=== PATIENT | female | born 1960 | race Caucasian/White ===

== ENCOUNTER 2020-09-19 08:25 | Outpatient (CLI) | payer OTHER, SELFPAY ==
--- NOTE | ~2020-09-19 | MM_ITS ---
EXAMINATION: MM screening erich BI w john HISTORY: Screening TECHNIQUE: Craniocaudal and mediolateral oblique 3-D tomosynthesis images were obtained and synthetic 2-D images were generated. CAD analysis was submitted and interpreted. COMPARISON: No prior mammogram is available for comparison at this institution. BREAST PARENCHYMAL COMPOSITION: Breast composed of scattered areas of fibroglandular density. FINDINGS: There is no evidence of suspicious mass, calcification, or architectural distortion to sugg est malignancy in either breast. There has been no suspicious interval change. IMPRESSION: 1. No mammographic evidence of malignancy. 2. Recommend routine screening mammography in one year. BI-RADS Category 1: Negative Reviewed, dictated and finalized at location A. IC ADDRESS ANNOUNCER
== END 2020-09-19 08:26 | disposition home or self-care (01) ==
LOC: ANHIMG 08:27
PROVIDERS: PCP Nurse Practitioner Adult Health; Visit Provider Nurse Practitioner Adult Health
DX: Z12.31 Encounter for screening mammogram for malignant neoplasm of breast (principal)
CPT/HCPCS: 77063; 77067

== ENCOUNTER 2020-09-20 10:34 | Emergency (ER) | payer OTHER, SELFPAY ==
--- NOTE | ~2020-09-20 | XR_ITS ---
EXAMINATION: XR hand LT min 3V INDICATION: Left hand pain TECHNIQUE: Three views of the left hand are obtained. COMPARISON: 05/30/2009 FINDINGS: There is advanced osteoarthritis at the first carpometacarpal joint and fifth distal interp halangeal joint. There is a possible prior fracture second distal interphalangeal joint. No acute fra cture is identified. The soft tissues are unremarkable IMPRESSION: 1. Osteoarthritis without acute osseous abnormality identified. Reviewed, dictated and finalized at location A. SOFTWARE ENGINEERING
--- NOTE | ~2020-09-20 | XR_ITS ---
EXAMINATION: XR chest 1V portable INDICATION: Chest pain TECHNIQUE: Portable AP chest at 1126 hours COMPARISON: 10/04/2017 FINDINGS: The lungs are free of acute opacities. There is no pleural effusion or pneumothorax. The ca rdiomediastinal silhouette is normal. The visualized bones and soft tissues are unremarkable. IMPRESSION: 1. No acute cardiopulmonary abnormality. Reviewed, dictated and finalized at location A. [employer]IA JOB TITLES
--- NOTE | ~2020-09-20 | XR_ITS ---
EXAMINATION: XR forearm LT 2V INDICATION: Left forearm pain TECHNIQUE: Two views of the left forearm are obtained. COMPARISON: None available FINDINGS: There is no fracture, dislocation, or subluxation. Alignment at the wrist and elbow is norm al. There is advanced osteoarthritis at the first carpometacarpal joint. IMPRESSION: 1. No acute osseous abnormality. Reviewed, dictated and finalized at location A. DENT BUYER
[2020-09-20 10:51] VITALS: BP 168/100; PULSE 86; RESP 18; TEMP 36.4; O2SAT 99
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
== END 2020-09-20 11:35 | disposition home or self-care (01) ==
PROVIDERS: Emergency Provider Emergency Medicine; PCP Nurse Practitioner Adult Health
DX: S20.211A Contusion of right front wall of thorax, initial encounter (principal); S50.12XA Contusion of left forearm, initial encounter; S60.222A Contusion of left hand, initial encounter; V49.40XA Driver injured in collision with unspecified motor vehicles in traffic accident, initial encounter
CPT/HCPCS: 71045; 73090; 73130; 99284

== ENCOUNTER 2020-10-26 13:38 | Outpatient (CLI) | payer OTHER, SELFPAY ==
--- NOTE | 2020-10-26 | ECHO_ITS ---
Patient Info Name: Zaida Webber Age: 60 years : 1960 Gender: Female Ht: 60 in Wt: 138 lbs BSA: 1.65 m2 HR: 70 bpm BP: 171 / 98 mmHg Heart Rhythm: Sinus Rhythm Technical Quality: Good Exam Date: 10/26/2020 1:58 PM Exam Location: [facility] Patient Status: Outpatient Admit Date: 10/26/2020 Staff Ordering Physician: RafitaMonica NP Adjunct Psychology Instructor: Juan Taylor RDCS Attending Provider: Juan DanielMonica NP Exam Type: CA echo doppler color flow Study Info Indications R01.1 - Cardiac murmur, unspecified Complete two-dimensional, color flow and Doppler transthoracic echocardiogram is performed. Strain analysis performed. History/Risk Factors Murmur; past hx of pericarditis. Summary 1. Complete two-dimensional, color flow and Doppler transthoracic echocardiogram is performed. 2. Left ventricular chamber dimension is normal. 3. Left ventricular systolic function is hyperdynamic, estimated at >70%. 4. There is severe asymmetric septal increased left ventricular wall thickness. 5. Left ventricular septal wall motion is normal. 6. The left ventricular diastolic function is grade I diastolic dysfunction. 7. Global longitudinal strain is borderline at -17 %. 8. LVOT gradient with Valsalva 36 mmHg with a velocity of 3.0 m/sec. 9. Left atrial chamber dimension is mildly enlarged. 10. There is mild tricuspid valve regurgitation. 11. Mild pulmonary hypertension, estimated pulmonary arterial systolic pressure is 37 mmHg. 12. The mitral valve annulus is moderately calcified. 13. There is mild mitral valve regurgitation. 14. Strain analysis performed. Left Ventricle Left ventricular chamber dimension is normal. Left ventricular systolic function is hyperdynamic, estimated at >70%. There is severe asymmetric septal increased left ventricular wall thickness. Left ventricular septal wall motion is normal. The left ventricular diastolic function is grade I diastolic dysfunction. Global longitudinal strain is borderline at -17 %. LVOT gradient with Valsalva 36 mmHg with a velocity of 3.0 m/sec. Right Ventricle Right ventricular chamber dimension is normal. Right ventricular systolic function is normal. Left Atria Left atrial chamber dimension is mildly enlarged. Right Atria Right atrial chamber dimension is normal. Atrial Septum Intact interatrial septum visualized by color flow imaging. Aortic Valve The aortic valve is trileaflet. There is mild aortic valve sclerosis. There is no aortic valve stenosis. There is trace aortic valve regurgitation. Pulmonic Valve The pulmonic valve is normal. There is no pulmonic valve stenosis. There is trace pulmonic regurgitation. Mitral Valve There is no mitral valve stenosis. There is mild mitral valve regurgitation. The mitral valve annulus is moderately calcified. Tricuspid Valve The tricuspid valve leaflets are normal. There is no significant tricuspid valve stenosis. There is mild tricuspid valve regurgitation. Mild pulmonary hypertension, estimated pulmonary arterial systolic pressure is 37 mmHg. Pericardium/Pleural The pericardium appears epicardial fat pad. There is no pericardial effusion. Inferior Vena Cava Normal inferior vena cava with <50% collapse upon inspiration consistent with elevated right atrial pressure, 10 mmHg. Aorta The aortic root size at the sinus of Valsalva is normal. The prox ascending aorta size is normal. Left Vent
== END 2020-10-26 13:39 | disposition home or self-care (01) ==
PROVIDERS: PCP Nurse Practitioner Adult Health; Visit Provider Nurse Practitioner Adult Health
DX: R01.1 Cardiac murmur, unspecified (principal); I27.20 Pulmonary hypertension, unspecified; I08.1 Rheumatic disorders of both mitral and tricuspid valves
CPT/HCPCS: 93306

== ENCOUNTER 2020-12-08 08:50 | Outpatient (CLI) | payer OTHER, SELFPAY ==
--- NOTE | ~2020-12-08 | XR_ITS ---
EXAMINATION: XR lumbar spine 2-3V DATE: 12/08/2020 09:08 INDICATION: Lumbosacral spondylosis TECHNIQUE: Anteroposterior and lateral views of the lumbar spine, and cone-down lateral view of the l umbosacral junction were obtained. COMPARISON: Lumbar spine MR dated 04/27/2018 FINDINGS: 5 degrees lumbar levocurvature. 3 mm anterolisthesis L3 on L4. Vertebral body heights are normal. Sev ere disc height loss with sclerotic Modic type III changes anteriorly at T12-L1. Moderate disc height loss at T11-T12. Mild disc height loss at L2-L3 and L3-L4. Mild to moderate, lower lumbar predominan t facet osteoarthritis. Sacrum and bilateral sacroiliac joints are normal. IMPRESSION: 1. Severe degenerative disc disease at T12-L1. Mild to moderate lumbar spondylosis. Reviewed, dictated and finalized at location A. IMPRESSION: 1. Severe degenerative disc disease at T12-L1. Mild to moderate lumbar spondylo sis.
--- NOTE | ~2020-12-08 | XR_ITS ---
EXAMINATION:XR_CERV2-3V_CR DATE: 12/08/2020 09:08 INDICATION: Cervicalgia TECHNIQUE: AP, lateral and odontoid views of the cervical spine are provided. COMPARISON: None FINDINGS: 1-2 mm anterolisthesis C7 on T1. Straightening of the normal cervical lordosis. Odontoid is intact. Normal atlantoaxial interval. Vertebral body heights are normal. Moderate disc height loss with mild degenerative endplate changes and moderate bilateral uncovertebral osteoarthritis at C5-C6 and C6-C7. Mild disc height loss at C4-C5. Moderate to severe facet osteoarthritis in the mid cervical spine, l eft greater than right. Prevertebral soft tissues are normal. Airway and visualized apices of lungs a re clear. IMPRESSION: 1. Moderate cervical spondylosis. Reviewed, dictated and finalized at location A.
[2020-12-08 10:09] LABS: Alanine Aminotransferase 22 U/L (4-35); Albumin Level 4.5 g/dL (3.5-5.1); Alkaline Phosphatase 68 U/L (38-126); Anion Gap 5 mmol/L (8-16); Aspartate Amino Transferase 27 U/L (14-36); Bilirubin,Total 0.5 mg/dL (0.2-1.3); Blood Urea Nitrogen 17 mg/dL (7-17); Calcium 9.1 mg/dL (8.4-10.2); Carbon Dioxide 31 mmol/L (22-30); Chloride 105 mmol/L (98-107); Estimated Glomerular Filt Rate > 60; Glucose 111 mg/dL (65-105); Potassium 4.3 mmol/L (3.4-5.0); Sodium 141 mmol/L (137-145)
== END 2020-12-08 08:51 | disposition home or self-care (01) ==
LOC: ANHIMG 08:56
PROVIDERS: PCP Nurse Practitioner Adult Health
DX: M54.2 Cervicalgia (principal); M47.817 Spondylosis without myelopathy or radiculopathy, lumbosacral region; M54.16 Radiculopathy, lumbar region; M54.5 Low back pain; R22.2 Localized swelling, mass and lump, trunk; M51.34 Other intervertebral disc degeneration, thoracic region; M47.816 Spondylosis without myelopathy or radiculopathy, lumbar region; M47.812 Spondylosis without myelopathy or radiculopathy, cervical region
CPT/HCPCS: 36415; 72040; 72100; 80053

== ENCOUNTER 2021-01-07 09:17 | Outpatient (CLI) | payer OTHER, SELFPAY ==
[2021-01-07 09:42] LABS: Hematocrit 45.3 % (37.0-47.0); Hemoglobin 15.1 g/dL (12.0-15.0); Mean Corpuscular HGB Conc 33.3 g/dl (32-36); Mean Corpuscular Hemoglobin 30.5 pg (26-34); Mean Corpuscular Volume 91.5 fl (80-100); Mean Platelet Volume 9.8 fl (7.4-10.4); Platelet Count Result 253 k/mm3 (150-375); Red Blood Count 4.95 M/mm3 (4.2-5.4); Red Cell Distribution Width 12.1 % (11.5-14.5); White Blood Count 6.7 K/mm3 (4.5-10.0)
[2021-01-07 09:45] LABS: Alanine Aminotransferase 28 U/L (4-35); Albumin Level 4.6 g/dL (3.5-5.1); Alkaline Phosphatase 64 U/L (38-126); Anion Gap 6 mmol/L (8-16); Aspartate Amino Transferase 29 U/L (14-36); Bilirubin,Total 0.8 mg/dL (0.2-1.3); Blood Urea Nitrogen 17 mg/dL (7-17); Calcium 9.6 mg/dL (8.4-10.2); Carbon Dioxide 31 mmol/L (22-30); Chloride 105 mmol/L (98-107); Cholesterol 149 mg/dL (0-200); Estimated Glomerular Filt Rate > 60; Glucose 103 mg/dL (65-105); HDL Direct 46 mg/dL; Potassium 4.2 mmol/L (3.4-5.0); Sodium 142 mmol/L (137-145); Triglycerides 112 mg/dL (<150)
[2021-01-07 09:56] LABS: LDL Cholesterol Direct 83 mg/dL
[2021-01-07 10:36] LABS: Vitamin B12 > 1000.0 pg/mL (239-931)
[2021-01-07 11:02] LABS: Iron 137 ug/dL (37-170)
[2021-01-07 11:11] LABS: Percent Iron Saturation 49 % (20-50)
[2021-01-07 11:17] LABS: Vitamin D 25 Hydroxy 41.6 ng/mL
== END 2021-01-07 09:18 | disposition home or self-care (01) ==
LOC: ANHLAB 09:20
PROVIDERS: PCP Nurse Practitioner Adult Health; Visit Provider Nurse Practitioner Adult Health
DX: E55.9 Vitamin D deficiency, unspecified (principal); E03.9 Hypothyroidism, unspecified; I10 Essential (primary) hypertension; E78.5 Hyperlipidemia, unspecified; R53.81 Other malaise
CPT/HCPCS: 36415; 80048; 80061; 80076; 82306; 82607; 82728; 83540; 83550; 84443; 85027

== ENCOUNTER 2021-03-26 19:35 | Emergency (ER) | payer OTHER, SELFPAY ==
[2021-03-26 19:40] VITALS: BP 127/73; PULSE 80; RESP 20; TEMP 36.3; O2SAT 96
[2021-03-26] MEDS: TETANUS,DIPHTHERIA,AC PERTUSSIS ADULT (0.5 ML) BOOSTRIX IM (19:58)
--- NOTE | 2021-03-26 20:24 | ED.GENADULT ---
HPI - General Adult General Chief complaint: Wound/Laceration Stated complaint: cut my fingers Time Seen by Provider: 03/26/21 19:48 Source: patient, family and RN notes reviewed Mode of arrival: ambulatory Limitations: no limitations History of Present Illness HPI narrative: Patient is a 60-year-old female who presents to emergency department for evaluation of laceration of the distal tip of the right middle finger patient had a piece of porcelain break in the sink cut herself patient is unsure as to her tetanus status on arrival patient presents in no distress resting comfortably Related Data Home Medications Medication Instructions Recorded Confirmed atorvastatin 20 mg tablet 20 mg PO DAILY tablet 02/29/20 levothyroxine 25 mcg tablet 25 mcg PO DAILY tablet 02/29/20 montelukast 10 mg tablet 10 mg PO DAILY tablet 02/29/20 Allergies Allergy/AdvReac Type Severity Reaction Status Date / Time No Known Allergies Allergy Verified 03/26/21 19:43 Review of Systems Review of Systems: All systems reviewed & are unremarkable except as noted in HPI and below PMFSH Past Medical History Medical History Low thyroid stimulating hormone (TSH) level Surgical History Surgical History H/O: hysterectomy 1979 History of foot surgery 2003 Social History Social History Gender identity (if verbalized by the patient): Female Exam Narrative: Exam Narrative: GENERAL: Well-appearing, well-nourished, and in no acute distress. HEAD: Normocephalic, atraumatic. EYES: PERRLA and EOMI. ENT: Nares clear, no rhinorrhea or epistaxis. Mucous membranes moist. EXTREMITIES: Normal range of motion. No edema. Superficial half centimeter flap laceration distal right middle digit SKIN: Warm, dry, no rash. NEURO: No focal deficits. Alert and oriented x3. Neurovascularly intact PSYCH: Normal mood and affect. Course Course Emergency Course: Patient had evaluation emergency department given tetanus and wound closed provided with reasons to return felt appropriate for outpatient reevaluation Vital Signs Vital signs: Vital Signs Temperature 97.3 F L 03/26/21 19:40 Pulse Rate 80 03/26/21 19:40 Respiratory Rate 20 03/26/21 19:40 Blood Pressure 127/73 03/26/21 19:40 Pulse Oximetry 96 03/26/21 19:40 Temperature 97.3 F L 03/26/21 19:40 Pulse Rate 80 03/26/21 19:40 Respiratory Rate 20 03/26/21 19:40 Blood Pressure 127/73 03/26/21 19:40 Pulse Oximetry 96 03/26/21 19:40 Procedures Laceration Laceration 1: Date: 03/26/21 Site: hand Side (If applicable): right Size (cm): 0.5 Description: flap Depth: simple, single layer Pre-repair: wound explored ====== Skin Level ====== Skin layer closed with: dermabond ====== Subcutaneous Layer ====== ====== Muscle Layer ====== ====== Tendon Layer ====== Medical Decision Making MDM Narrative Medical decision making narrative: Patients injury or pain is consistent with musculoskeletal etiology. No signs of neurological or vascular compromise on exam. Compartments and tisues are soft without signs of compartment syndrome. Pain is felt appropriate for further evaluation on an outpatient basis. Vital Signs Vital Signs: Vital Signs Temperature 97.3 F L 03/26/21 19:40 Pulse Rate 80 03/26/21 19:40 Respiratory Rate 20 03/26/21 19:40 Blood Pressure 127/73 03/26/21 19:40 Pulse Oximetry 96 03/26/21 19:40 Temperature 97.3 F L 03/26/21 19:40 Pulse Rate 80 03/26/21 19:40 Respiratory Rate 20 03/26/21 19:40 Blood Pressure 127/73 03/26/21 19:40 Pulse Oximetry 96 03/26/21 19:40 Discharge Plan Discharge Clinical Impression: Finger laceration Patient Disposition: Home, Self-Care Condit
== END 2021-03-26 20:39 | disposition home or self-care (01) ==
PROVIDERS: Emergency Provider Emergency Medicine; PCP Nurse Practitioner Adult Health
DX: S61.212A Laceration without foreign body of right middle finger without damage to nail, initial encounter (principal); Z23 Encounter for immunization; W26.8XXA Contact with other sharp object(s), not elsewhere classified, initial encounter
CPT/HCPCS: 12001; 90471; 90715; 99282

== ENCOUNTER 2021-05-06 08:59 | Outpatient (CLI) | payer OTHER, SELFPAY ==
--- NOTE | ~2021-05-06 | MR_ITS ---
EXAMINATION: MR lumbar spine wo con EXAM DATE: 05/06/2021 10:24 INDICATION: Chronic low back pain. TECHNIQUE: Multi-sequential, multiplanar MR images of the lumbar spine were obtained without contrast . Sagittal T1, T2, T2 fat saturation images. Axial T2 weighted images. Comparison is made to prior examination from 2018. FINDINGS: There is moderate loss of the disc height at T12-L1, mild to moderate at L3-4 with 3 mm ant erolisthesis. The vertebral bodies are otherwise aligned. The conus medullaris terminates at the T12- L1 level and has normal signal intensity and morphology. There are no suspicious marrow signal abnor malities. Paraspinal soft tissue is unremarkable. Level by level evaluation: T12-L1: There is a mild to moderate diffuse disc bulge. Facet arthropathy: Mild. Neural foraminal stenosis: No stenosis. Central canal stenosis: Mild. L1-L2: Disc does not extend beyond the endplate margin. Facet arthropathy: Mild. Neural foraminal stenosis: No stenosis. Central canal stenosis: No stenosis. L2-L3: There is a mild diffuse disc bulge. Facet arthropathy: Mild to moderate. Neural foraminal stenosis: Mild bilateral. Central canal stenosis: Mild. L3-L4: There is a moderate diffuse disc bulge. Facet arthropathy: Moderate to severe . Ligamentum flavum enlargement. Neural foraminal stenosis: Mild to moderate bilateral. Central canal stenosis: Mild to moderate. L4-L5: There is a mild to moderate diffuse disc bulge. Facet arthropathy: Moderate. Neural foraminal stenosis: Mild left. Central canal stenosis: Mild to moderate. L5-S1: There is a mild diffuse disc bulge. Facet arthropathy: Moderate left, mild right. Neural foraminal stenosis: Minimal left. Central canal stenosis: Mild. Compared to 2018, mild progression spondylosis. IMPRESSION: L3-4 grade 1 anterolisthesis, advanced arthropathy. Less spondylosis other levels. Reviewed, dictated and finalized at location B. IMPRESSION: L3-4 grade 1 anterolisthesis, advanced arthropathy. Less spondylosi s other levels.
== END 2021-05-06 09:00 | disposition home or self-care (01) ==
LOC: ANHIMG 09:00
PROVIDERS: PCP Nurse Practitioner Adult Health; Visit Provider Pain Medicine Pain Medicine
DX: M47.817 Spondylosis without myelopathy or radiculopathy, lumbosacral region (principal); M51.36 Other intervertebral disc degeneration, lumbar region; M43.16 Spondylolisthesis, lumbar region; M47.816 Spondylosis without myelopathy or radiculopathy, lumbar region
CPT/HCPCS: 72148

== ENCOUNTER → 2021-05-12 04:08 | Outpatient (CLI) | payer OTHER, SELFPAY ==
[2021-05-12 18:14] LABS: SARS-CoV-2 RNA PCR Negative
== END ==
PROVIDERS: PCP Nurse Practitioner Adult Health; Visit Provider Nurse Practitioner Adult Health
DX: Z20.822 Contact with and (suspected) exposure to COVID-19 (principal); R09.81 Nasal congestion
CPT/HCPCS: C9803; U0003; U0005

== ENCOUNTER 2021-10-30 07:41 | Outpatient (CLI) | payer OTHER, SELFPAY ==
--- NOTE | ~2021-10-30 | MM_ITS ---
EXAMINATION: MM screening erich BI w john HISTORY: Screening mammogram TECHNIQUE: Craniocaudal and mediolateral oblique 3-D tomosynthesis images were obtained and synthetic 2-D images were generated. CAD analysis was submitted and interpreted. COMPARISON: 09/19/2020,, bilateral screening mammogram examinations BREAST PARENCHYMAL COMPOSITION: There are scattered areas of fibroglandular density. FINDINGS: There is no evidence of suspicious mass, calcification, or architectural distortion to sugg est malignancy in either breast. There has been no suspicious interval change. IMPRESSION: 1. No mammographic evidence of malignancy. 2. Recommend routine screening mammography in one year. BI-RADS Category 1: Negative Reviewed, dictated and finalized at location A. SING GUARD
== END 2021-10-30 07:42 | disposition home or self-care (01) ==
LOC: ANHIMG 07:42
PROVIDERS: PCP Nurse Practitioner Adult Health; Visit Provider Nurse Practitioner Adult Health
DX: Z12.31 Encounter for screening mammogram for malignant neoplasm of breast (principal)
CPT/HCPCS: 77063; 77067

== ENCOUNTER 2022-02-28 15:00 | Outpatient (RCR) | payer OTHER, SELFPAY ==
--- NOTE | 2022-01-30 08:43 | PTOPEVAL ---
PHYSICAL THERAPY EVALUATION AND PLAN OF CARE Thank you for referring Zaida Webber to [facility].? The patient is scheduled to be seen for therapy? 1x/week for 5 weeks. Please review, sign, date and return this plan of care TOSHA. I agree with and certify that the following plan of care is medically necessary. Referring Physician Date Attending Provider: Andrés Roberson Diagnosis erosive osteoarthritis Onset chronic Subjective Information Zaida is here today with a Query Text:As Reported By Patient/ diagnosis of erosive OA. She Family reports that she has pain in her hands, feet, low back, upper back, and neck. She reports that she has a difficult time opening bag of chips or jars. She gets generally achey in her low back and it will spread down to her hips. Self Report Pain Assessment Generalized Reported Pain Level 5 Cervical ROM Cervical Flexion (0-60) 45 Query Text:Active in Degrees Cervical Flexion (0-70) 30 Query Text:Passive in Degrees Cervical Rotation Right (0-90) 56 Query Text:Active in Degrees Cervical Rotation Left (0-90) 55 Query Text:Active in Degrees Lumbar ROM Lumbar Flexion Active Ankle Query Text:Hands to: Lumbar Lateral Flexion Right (0-40) 15 Query Text:Active in Degrees Lumbar Comments left rotation<right rotation Upper Extremity Range of Motion General Upper Extremity Range of Motion Gross Upper Extremity Range of Motion generally WFL with left Comments shoulder tenderness; endranges limited secondary to decreased thoracic mobility Lower Extremity Range of Motion General Lower Extremity Range of Motion Reason Not Measured WFL/Left,WFL/Right Lower Extremity Muscle Strength Testing Hip Strength Bilateral Hip Flexion Strength 5 Normal Hip Extension Strength 4- Good - Hip Abduction Strength 4- Good - Knee Strength Bilateral Knee Flexion Strength 5 Normal Knee Extension Strength 5 Normal Upper Extremity Muscle Strength Testing Scapular/Shoulder Bilateral Scapular Retraction - Middle Trapezius 3- Fair - Scapular Retraction - Lower Trapezius 3- Fair - Shoulder Flexion Strength 4- Good - Shoulder Abduction Strength 4- Good - Shoulder Medial Rotation Strength 4- Good - Shoulder Lateral Rotation Strength 3+ Fair + Shoulder Strength Comments right 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
--- NOTE | 2022-02-13 14:23 | PCPTNOTE ---
Patient called & cancelled scheduled appointment this date, no reason given.
--- NOTE | 2022-03-13 07:28 | PCPTNOTE ---
Patient called & cancelled scheduled appointment this date due to not feeling well.
--- NOTE | 2022-03-13 09:01 | PCPTNOTE ---
PHYSICAL THERAPY DISCHARGE NOTE Attending Provider: Andrés Roberson Patient:Zaida Webber Date of :1960 Zaida has been participating in physical therapy to address pain related to OA. She is now independent in HEP and states good understanding of her instructions and education. Zaida cancelled her last visit due to not feeling well but spoke with her on the phone and she states she is comfortable with HEP and is ready for discharge. Patient?s initial visit was on 01/30/2022 and had a total of 4 visits. Thank you for referring this patient to [facility]. Please review, sign, date and return this discharge summary TOSHA. I have been updated about the patient's current status and I agree with discharge from the above service at this time. Referring Physician Date
== END 2022-03-13 13:48 | disposition home or self-care (01) ==
LOC: ANHPT 15:00
PROVIDERS: PCP Nurse Practitioner Adult Health
DX: M15.4 Erosive (osteo)arthritis (principal)
CPT/HCPCS: 97110; 97112; 97140; 97162

== ENCOUNTER 2022-07-13 09:15 | Outpatient (CLI) | payer OTHER, SELFPAY ==
[2022-07-13 10:01] LABS: Hematocrit 41.7 % (37.0-47.0); Hemoglobin 13.7 g/dL (12.0-15.0); Mean Corpuscular HGB Conc 32.9 g/dl (32-36); Mean Corpuscular Hemoglobin 30.2 pg (26-34); Mean Corpuscular Volume 91.9 fl (80-100); Platelet Count Result 240 k/mm3 (150-375); Red Blood Count 4.54 M/mm3 (4.2-5.4); Red Cell Distribution Width 12.8 % (11.5-14.5); White Blood Count 6.7 K/mm3 (4.5-10.0)
[2022-07-13 10:19] LABS: Iron 87 ug/dL (37-170)
[2022-07-13 10:29] LABS: Percent Iron Saturation 31 % (20-50)
[2022-07-13 10:34] LABS: Alanine Aminotransferase 32 U/L (6-35); Albumin Level 4.2 g/dL (3.5-5.1); Alkaline Phosphatase 70 U/L (38-126); Anion Gap 10 mmol/L (8-16); Aspartate Amino Transferase 29 U/L (14-36); Bilirubin,Total 0.7 mg/dL (0.2-1.3); Blood Urea Nitrogen 18 mg/dL (7-17); Calcium 8.4 mg/dL (8.4-10.2); Carbon Dioxide 28 mmol/L (22-30); Chloride 104 mmol/L (98-107); Cholesterol 163 mg/dL (0-200); Estimated Glomerular Filt Rate > 60; Glucose 110 mg/dL (65-110); HDL Direct 47 mg/dL; Potassium 4.2 mmol/L (3.4-5.0); Sodium 142 mmol/L (137-145); Triglycerides 53 mg/dL (<150)
[2022-07-13 10:45] LABS: LDL Cholesterol Direct 87 mg/dL
[2022-07-13 11:04] LABS: Thyroid Stimulating Hormone 0.892 uIU/mL (0.465-4.680)
== END 2022-07-13 09:16 | disposition home or self-care (01) ==
LOC: ANHLAB 09:19
PROVIDERS: PCP Nurse Practitioner Adult Health; Visit Provider Nurse Practitioner Adult Health
DX: E03.9 Hypothyroidism, unspecified (principal); E55.9 Vitamin D deficiency, unspecified; I10 Essential (primary) hypertension; E78.5 Hyperlipidemia, unspecified; R53.81 Other malaise
CPT/HCPCS: 36415; 80048; 80061; 80076; 82306; 82607; 83540; 83550; 84443; 85027

== ENCOUNTER 2022-08-10 10:14 | Outpatient (CLI) | payer OTHER, SELFPAY ==
--- NOTE | ~2022-08-10 | XR_ITS ---
EXAMINATION: XR shoulder LT min 2V INDICATION: Left shoulder pain TECHNIQUE: Four views of the left shoulder are submitted. COMPARISON: None FINDINGS: Normal alignment. No fracture. Glenohumeral and acromioclavicular joint spaces are normal. Soft tissues are unremarkable. IMPRESSION: 1. No acute osseous abnormality. Reviewed, dictated and finalized at location A. ENT SERVICES COORDINATOR
--- NOTE | ~2022-08-10 | XR_ITS ---
EXAMINATION: XR shoulder RT min 2V INDICATION: Right shoulder pain TECHNIQUE: Four views of the right shoulder are submitted. COMPARISON: None FINDINGS: Normal alignment. No fracture. Glenohumeral and acromioclavicular joint spaces are normal. Soft tissues are unremarkable. IMPRESSION: 1. No acute osseous abnormality. Reviewed, dictated and finalized at location A. LIANCE PROJECT MANAGER
== END 2022-08-10 10:15 | disposition home or self-care (01) ==
PROVIDERS: PCP Nurse Practitioner Adult Health
DX: M25.511 Pain in right shoulder (principal)
CPT/HCPCS: 73030

== ENCOUNTER 2022-10-31 10:11 | Outpatient (CLI) | payer OTHER, SELFPAY ==
--- NOTE | ~2022-10-31 | XR_ITS ---
AP and lateral views of the bilateral hips Clinical history: Pain Findings: No acute fracture or dislocation is seen. Osseous alignment is anatomic. Bilateral hip and SI joint spaces are preserved. Soft tissues are unremarkable. Impression: No significant abnormality is seen. Reviewed, dictated and finalized at location . CRAFTSMAN Impression: No significant abnormality is seen.
== END 2022-10-31 10:12 | disposition home or self-care (01) ==
PROVIDERS: PCP Family Medicine; Visit Provider Pain Medicine Pain Medicine
DX: M25.551 Pain in right hip (principal); M25.552 Pain in left hip
CPT/HCPCS: 73521

== ENCOUNTER 2023-01-24 07:59 | Outpatient (CLI) | payer OTHER, SELFPAY ==
--- NOTE | ~2023-01-24 | MM_ITS ---
EXAMINATION: MM screening [facility] BI w john HISTORY: Screening mammogram TECHNIQUE: Craniocaudal and mediolateral oblique 3-D tomosynthesis images were obtained and synthetic 2-D images were generated. CAD analysis was submitted and interpreted. COMPARISON: 10/30/2021, 09/19/2020, 12/31/2018 BREAST PARENCHYMAL COMPOSITION: There are scattered areas of fibroglandular density. FINDINGS: No suspicious mass, calcification, or architectural distortion are identified in either alyssa ast to suggest malignancy. There has been no suspicious interval change. IMPRESSION: 1. No mammographic evidence of malignancy. 2. Recommend routine screening mammography in one year. BI-RADS Category 1: Negative Reviewed, dictated and finalized at location A.
== END 2023-01-24 08:00 | disposition home or self-care (01) ==
PROVIDERS: PCP Family Medicine; Visit Provider Family Medicine
DX: Z12.31 Encounter for screening mammogram for malignant neoplasm of breast (principal)
CPT/HCPCS: 77063; 77067

== ENCOUNTER 2023-10-30 16:22 | Emergency (ER) | payer OTHER, SELFPAY ==
--- NOTE | ~2023-10-30 | XR_ITS ---
EXAMINATION: XR chest 1V portable 10/30/2023 17:00 INDICATION: Chest pain PROCEDURE: AP portable chest COMPARISON: 09/02/2015 FINDINGS: The lungs are clear. The cardiomediastinal silhouette is within normal limits. There are no pleural effusions. There is no pneumothorax suspected. IMPRESSION: 1: NO ACUTE CARDIOPULMONARY DISEASE. Reviewed, dictated and finalized at location A. [facility]
--- NOTE | ~2023-10-30 | CT_ITS ---
EXAMINATION: CTA chest PE protocol DATE: 10/30/2023 19:14 INDICATION: Back pain. Right scapular pain. TECHNIQUE: Computed tomography angiography (CTA) of the chest was performed with 100 mL Omnipaque-350 intravenous contrast timed to evaluate the pulmonary arteries. Coronal maximum intensity projection 3D-reconstructions were created by the technologist. Automated exposure control and iterative reconst ruction technique were employed. The dose-length product was 244.87 mGy-cm. COMPARISON: CT abdomen and pelvis 07/14/2015 FINDINGS: The lungs demonstrate mild atelectasis. No pleural effusion. The heart size is normal. No p ericardial effusion. There is no pulmonary embolus. There is severe cervical and thoracic spondylosis . There is mild chronic anterior wedging of multiple thoracic vertebral bodies. IMPRESSION: 1. No pulmonary embolus. Reviewed, dictated and finalized at location E. [facility] IMPRESSION: 1. No pulmonary embolus.
[2023-10-30 16:24] VITALS: BP 164/93; PULSE 78; RESP 20; TEMP 36.7; O2SAT 99
--- NOTE | 2023-10-30 16:35 | ED.BACK ---
HPI - Back Pain/Injury General Chief Complaint: Back Pain/Injury Stated Complaint: R SCAPULA PAIN X5D Time Seen by Provider: 10/30/23 16:35 Source: patient and family Mode of arrival: ambulatory Limitations: no limitations History of Present Illness HPI Narrative: 63 years old white female came to the ED by car with her complaining of right upper back pain, started 1 day after lifting heavy box above the level of her head. Symptoms started 5 days ago. Patient seen in urgent care and started on muscle relaxant and ibuprofen, no improvement. She denies any fever, chills, nausea, vomiting, chest pain or shortness of breath, pain get worse with breathing and certain movement. Related Data Home Medications Medication Instructions Recorded Confirmed atorvastatin 20 mg tablet 20 mg PO DAILY 02/29/20 levothyroxine 25 mcg tablet 25 mcg PO DAILY 02/29/20 montelukast 10 mg tablet 10 mg PO DAILY 02/29/20 Allergies Allergy/AdvReac Type Severity Reaction Status Date / Time No Known Allergies Allergy Verified 10/30/23 16:54 Review of Systems Review of Systems: All systems reviewed & are unremarkable except as noted in HPI and below PMFSH Past Medical History Medical History Low thyroid stimulating hormone (TSH) level Surgical History Surgical History H/O: hysterectomy 1979 History of foot surgery 2003 Social History Social History Smoking status: Never smoker Gender identity (if verbalized by the patient): Female Exam Narrative: General appearance: Well-developed, well-nourished Skin: Normal color Head: Normocephalic, nontraumatic Eyes: Clear conjunctiva ENT: Oropharynx normal, ears normal, nose normal Neck: Supple, nontender Chest and respiratory: Airway patent, no respiratory distress, no accessory muscle use Heart: Regular rate/rhythm Abdomen: Soft, nontender, no organomegaly, quiet bowel sounds Vascular: Normal peripheral pulses, normal capillary refill. Musculoskeletal: Back exam showed slight tenderness across thoracic area, no bruises, no swelling, no rash Neurologic: Alert and oriented ?3, CHIEF COUNSEL is normal as tested, no gross motor deficit Course Vital Signs Vital signs: Vital Signs Temperature 36.7 C 10/30/23 16:24 Pulse Rate 78 10/30/23 16:24 Respiratory Rate 20 10/30/23 16:24 Blood Pressure 164/93 H 10/30/23 16:24 Pulse Oximetry 99 10/30/23 16:24 Oxygen Delivery Room Air 10/30/23 16:24 Temperature 36.7 C 10/30/23 16:24 Pulse Rate 78 10/30/23 16:24 Respiratory Rate 20 10/30/23 16:24 Blood Pressure 164/93 H 10/30/23 16:24 Pulse Oximetry 99 10/30/23 16:24 Oxygen Delivery Room Air 10/30/23 16:24 MDM - Back Pain/Injury MDM Narrative Medical decision making narrative: Patient presents with right upper back pain at the scapular area 1 day after lifting heavy box above the level of her head. Vital signs are stable Physical examination showed slight this tenderness at the right upper and mid back, worse with certain movement and position. Differential diagnosis musculoskeletal strain/sprain, pneumonia, pleural effusion, pulmonary embolism, tumor, less likely coronary artery disease. Blood workup today showed no acute abnormalities, D-dimer slightly elevated 0.58, CTA pulmonary showed no pulmonary embolism in the ED patient received Dilaudid 0.5 mg twice, Zofran 4 mg twice Toradol 30 mg IV once Differential Diagnosis Differential diagnosis: Likely other (As above) Medical Records Attestation: I reviewe
--- NOTE | 2023-10-30 16:36 | ECG_ITS ---
Measurements Intervals [place] Rate: 76 P: 14 MT: 128 QRS: 5 QRSD: 94 T: 30 QT: 399 QTc: 450 Interpretive Statements SINUS RHYTHM NORMAL ECG NO PREVIOUS ECG AVAILABLE FOR COMPARISON Electronically Signed On 10-31-2023 12:17:44 [employer] by Farooq Sears M.D.
[2023-10-30 17:21] LABS: Basophils Percent Auto 0.4 % (0.2-1.2); Eosinophils Absolute Auto 0.2 K/mm3 (0-0.3); Eosinophils Percent Auto 2.2 % (0-4.4); Hematocrit 42.3 % (37.0-47.0); Hemoglobin 13.8 g/dL (12.0-15.0); Immature Granulocyte Absolute 0.02 K/mm3 (0.00-0.031); Immature Granulocyte Percent A 0.2 % (0-0.5); Lymphocytes Absolute Auto 2.67 K/mm3 (0.9-3.2); Lymphocytes Percent Auto 32.6 % (18.3-44.2); Mean Corpuscular HGB Conc 32.6 g/dl (32-36); Mean Corpuscular Hemoglobin 30.1 pg (26-34); Mean Corpuscular Volume 92.4 fl (80-100); Mean Platelet Volume 10.3 fl (7.4-10.4); Monocytes Absolute Auto 0.7 K/mm3 (0.1-0.6); Monocytes Percent Auto 7.9 % (2.6-8.5); Neutrophils Absolute Auto 4.6 K/mm3 (1.3-6.7); Neutrophils Percent Auto 56.7 % (45.5-73.1); Platelet Count Result 251 k/mm3 (150-375); Red Blood Count 4.58 M/mm3 (4.2-5.4); Red Cell Distribution Width 12.1 % (11.5-14.5); White Blood Count 8.2 K/mm3 (4.5-10.0)
[2023-10-30 17:29] LABS: Alanine Aminotransferase 20 U/L (6-35); Albumin Level 4.3 g/dL (3.5-5.1); Alkaline Phosphatase 76 U/L (38-126); Anion Gap 9 mmol/L (8-16); Aspartate Amino Transferase 22 U/L (14-36); Bilirubin,Total 0.8 mg/dL (0.2-1.3); Blood Urea Nitrogen 16 mg/dL (7-17); Carbon Dioxide 27 mmol/L (22-30); Chloride 103 mmol/L (98-107); Estimated CRCL calculation 50 ml/min; Estimated Glomerular Filt Rate > 60; Glucose 125 mg/dL (65-110); Potassium 3.9 mmol/L (3.4-5.0); Sodium 139 mmol/L (137-145)
[2023-10-30] MEDS: ONDANSETRON INJ 4 MG/2 ML VIAL IV PUSH ×2 (17:37→21:10)
[2023-10-30] MEDS: HYDROmorphone HCL INJ (*CRX) 1 MG/ML SYR 0.5 MG IV PUSH ×2 (17:37→21:12)
[2023-10-30 17:40] LABS: Troponin I < 0.012 ng/mL (0.000-0.034)
[2023-10-30 17:51] LABS: D Dimer 0.58 ug/mL (<0.48)
[2023-10-30] MEDS: KETOROLAC 30 MG/ML VIAL (*BKC) IV PUSH (21:11)
[2023-10-30 21:20] VITALS: BP 154/72; PULSE 82; RESP 15; O2SAT 100
== END 2023-10-30 21:20 | disposition home or self-care (01) ==
PROVIDERS: Emergency Provider Emergency Medicine; PCP Family Medicine
DX: M54.9 Dorsalgia, unspecified (principal); Z90.710 Acquired absence of both cervix and uterus
CPT/HCPCS: 36415; 71045; 71275; 80053; 84484; 85025; 85380; 93005; 96374; 96375; 96376; 99284; J1170; J1885; J2405; Q9967